=== PATIENT | male | born 1955 | race Caucasian/White ===

== ENCOUNTER → 2017-03-21 | Outpatient (CLI) | payer OTHER ==
[~2017-03-21] MED LIST: LEUPROLIDE 22.5MG SYRINGE KIT ONE
== END | disposition home or self-care (01) ==
LOC: ROC 08:00
PROVIDERS: ATTEND Radiology Radiation Oncology
DX: C61 Malignant neoplasm of prostate (principal)
CPT/HCPCS: J9217

== ENCOUNTER → 2017-10-03 | Outpatient (CLI) | payer OTHER | END | disposition home or self-care (01) | LOC: ROC 09:05 | PROVIDERS: ATTEND Radiology Radiation Oncology | DX: C61 Malignant neoplasm of prostate (principal) | CPT/HCPCS: 99213; J9217; 96402; G0463 ==

== ENCOUNTER → 2018-01-05 | Outpatient (CLI) | payer OTHER | END | disposition home or self-care (01) | LOC: ROC 08:13 | PROVIDERS: ATTEND Radiology Radiation Oncology | DX: Z08 Encounter for follow-up examination after completed treatment for malignant neoplasm (principal); C61 Malignant neoplasm of prostate | CPT/HCPCS: 96402; 99213; G0463 ==

== ENCOUNTER → 2018-04-03 | Outpatient (CLI) | payer OTHER, MEDICARE | LOC: ROC 09:28 | PROVIDERS: ATTEND Radiology Radiation Oncology | DX: C61 Malignant neoplasm of prostate (principal); I10 Essential (primary) hypertension; Z90.49 Acquired absence of other specified parts of digestive tract | CPT/HCPCS: 99213; G0463 ==

== ENCOUNTER → 2018-07-03 | Outpatient (CLI) | payer OTHER ==
[~2018-07-03] MED LIST changes: +LEUPROLIDE 22.5MG SYRINGE KIT IM ONE; -LEUPROLIDE 22.5MG SYRINGE KIT ONE
== END | disposition home or self-care (01) ==
LOC: ROC 07:56
PROVIDERS: ATTEND Radiology Radiation Oncology
DX: Z51.11 Encounter for antineoplastic chemotherapy (principal); C61 Malignant neoplasm of prostate; I10 Essential (primary) hypertension; Z90.49 Acquired absence of other specified parts of digestive tract
CPT/HCPCS: 96402; J9217

== ENCOUNTER → 2018-10-23 | Outpatient (CLI) | payer MEDICARE, OTHER | END | disposition home or self-care (01) | LOC: ROC 07:13 | PROVIDERS: ATTEND Radiology Radiation Oncology | DX: C61 Malignant neoplasm of prostate (principal) | CPT/HCPCS: 99213; J9217; 96402; G0463 ==

== ENCOUNTER → 2019-01-15 | Outpatient (CLI) | payer MEDICARE, OTHER ==
[~2019-01-15] MED LIST changes: +LEUPROLIDE (ELIGARD) 22.5 MG SYR SQ ONE; -LEUPROLIDE 22.5MG SYRINGE KIT IM ONE
== END | disposition home or self-care (01) ==
LOC: ROC 07:20
PROVIDERS: ATTEND Radiology Radiation Oncology
DX: C61 Malignant neoplasm of prostate (principal)
CPT/HCPCS: 96402; 99213; J9217; G0463

== ENCOUNTER 2020-03-10 07:34 | Outpatient (CLI) | payer MEDICARE | END 2020-03-10 23:59 | disposition home or self-care (01) | LOC: ROC 07:34 | PROVIDERS: ATTEND Radiology Radiation Oncology | DX: Z08 Encounter for follow-up examination after completed treatment for malignant neoplasm (principal); C61 Malignant neoplasm of prostate | CPT/HCPCS: 99212; G0463 ==

== ENCOUNTER → 2020-09-22 | Outpatient (CLI) | payer MEDICARE | END | disposition home or self-care (01) | LOC: ROC 07:40 | PROVIDERS: ATTEND Radiology Radiation Oncology | DX: Z08 Encounter for follow-up examination after completed treatment for malignant neoplasm (principal); Z85.46 Personal history of malignant neoplasm of prostate | CPT/HCPCS: 99212; G0463 ==

== ENCOUNTER 2021-06-08 07:52 | Outpatient (CLI) | payer MEDICARE | END 2021-06-08 23:59 | disposition home or self-care (01) | LOC: ROC 07:52 | PROVIDERS: ATTEND Radiology Radiation Oncology | DX: Z08 Encounter for follow-up examination after completed treatment for malignant neoplasm (principal); Z85.46 Personal history of malignant neoplasm of prostate | CPT/HCPCS: 99212; G0463 ==